=== PATIENT | female | born 1950 | race Caucasian/White ===

== ENCOUNTER 2017-01-21 16:12 | Emergency (ER) | payer OTHER ==
--- NOTE | ~2017-01-21 | CR72 ---
[facility]. [facility] A Service of [facility] & [facility] RADIOLOGY TEXT RESULTS PATIENT: SHAMAR BOOTHE LOCATION: SED : 50 UNIT #: [id number] AGE: [address]: Eber Vera MD SEX: F ORDER DR: [id number] [address] [address] [id number] MR#: [id number] Acc #: [id number] NAME: SHAMAR BOOTHE : 1950 SEX: F STUDY DATE/TIME: 01/21/2017 16:12 UNIT: SED ROOM: STUDY DESCRIPTION: CR Chest Single View Portable Attending Physician: Eber Vera M.D. Ordering Physician: Eber Vera M.D. MEDICAL IMAGING REPORT This report is preliminary unless electronic signature is present. EXAM Portable chest HISTORY Shortness of air today. FINDINGS The cardiac size and pulmonary vascularity are normal. Mild mid-right thoracic curve. Mild linear atelectasis or scarring in the lateral left base, increased compared to 05/26/2015. Incidental small calcified bilateral hilar nodes and calcified granuloma in the right midlung. IMPRESSION No acute findings. No active disease. Dictated by... Asa Canela M.D. THIS IS AN ELECTRONICALLY VERIFIED REPORT Asa Canela M.D. at 01/21/2017 11:43 PM BENITEZ/marco TD: 01/21/2017 17:27 JOB #: [id number] MEDICAL IMAGING REPORT Page 1 of 1
[~2017-01-21 16:12] MED LIST: AMBIEN PO; AMOXICILLIN PO; ASPIRIN PO; AUGMENTIN PO; CATAPRES0.1 MG; CELEXA PO; FAMOTIDINE PO; FIORICET 50-301 EACH PO; FLEXERIL10 MG PO; FROVA2.5 MG PO; IMITREX4 MG/0.5 M; INDERAL LA PO; KLONOPIN; KLONOPIN PO; LASIX; LOSARTAN-HCTZ1 EACH PO; MAXIDE; MAXIDE PO; PERCOCET5/325 PO; PHENERGAN PO; PREDNISONE PO; TOFRANIL PO; TOPROL XL PO; TOPROL XL50 MG PO; VASOTEC PO; VOLTAREN75 MG PO; ZOFRAN ODT4 MG/UDTAB PO; ZYRTEC-D T1 TAB.SR . PO
== END 2017-01-21 17:24 | disposition home or self-care (01) ==
LOC: SED 16:12
DX: J98.01 Acute bronchospasm (principal); M41.9 Scoliosis, unspecified; I10 Essential (primary) hypertension; Z90.710 Acquired absence of both cervix and uterus; Z98.51 Tubal ligation status
CPT/HCPCS: 71010; 94640; 99284